=== PATIENT | female | born 1995 | race Caucasian/White ===

== ENCOUNTER 2023-06-20 16:09 | Emergency (ER) | payer OTHER, SELFPAY ==
--- NOTE | ~2023-06-20 | XR_ITS ---
EXAMINATION: XR wrist RT min 3V DATE: 06/20/2023 16:36 INDICATION: Right wrist injury and pain and swelling. TECHNIQUE: 4 views of right wrist were obtained. COMPARISON: None. FINDINGS: Bone alignment is normal. No fracture. Joint spaces are normal. IMPRESSION: 1. Normal right wrist. Reviewed, dictated and finalized at location E. IMPRESSION: 1. Normal right wrist.
[2023-06-20 16:22] VITALS: BP 135/92; PULSE 87; RESP 20; TEMP 36.6; O2SAT 100
--- NOTE | 2023-06-20 16:23 | ED.UPPEXIN ---
HPI - Extremity Injury (Upper) General Chief Complaint: Extremity Injury, Upper Stated Complaint: Fall Injury/Right Wrist Injury Source: patient and RN notes reviewed History of Present Illness HPI narrative: 28 yo F presents to urgent care with complaints of right wrist pain. Pt states she fell at her brother's wedding on Tuesday night, describing a FOOSH injury. Pt has been having pain and limited ROM since. States she did hit her head but denies any LOC or neck pain. Denies any numbness or tingling. Pt presents with wrist splint in place. Related Data Home Medications Medication Instructions Recorded Confirmed [id number] 1 tablet PO Q4-6H PRN Headache 06/20/23 06/20/23 50 mg-325 mg-40 mg tablet naproxen 500 mg tablet mg 06/20/23 rizatriptan 10 mg disintegrating mg 06/20/23 tablet sumatriptan succinate 100 mg tablet 100 mg PO USEASDIRECTD 06/20/23 06/20/23 Allergies Allergy/AdvReac Type Severity Reaction Status Date / Time No Known Allergies Allergy Verified 06/20/23 16:25 Review of Systems Review of Systems: CONSTITUTIONAL: Denies fever, chills, or sweats. EYES: Denies visual changes, redness, or discharge. ENT: Denies otalgia and sore throat CARDIOVASCULAR: Denies chest pain, palpitations, or edema. RESPIRATORY: Denies cough or dyspnea. GASTROINTESTINAL: Denies abdominal pain, nausea, vomiting, or diarrhea. GENITOURINARY: Denies dysuria or hematuria. SKIN: Denies rash or itching. MUSCULOSKELETAL: Right wrist pain NEUROLOGIC: Denies headache, numbness, or weakness. Pertinent positives per HPI. PMFSH Comments At the time of my signature, I reviewed and agree with the nursing past medical, surgical, social, and family history. There is no relevant family history pertinent to the patient complaint. Exam Narrative: GENERAL: This is a well-nourished, well-developed patient, in no apparent distress. HEAD: normocephalic, atraumatic. EYES: Sclera clear/white. Vision is grossly intact. EARS: External ears normal, auditory canals clear and without drainage. Hearing grossly intact. NOSE: External nose normal with no obvious nasal discharge, nares without redness, no rhinorrhea. THROAT: Mucous membranes moist, posterior pharynx clear. NECK: Neck supple, non-tender without lymphadenopathy, masses or thyromegaly. CARDIOVASCULAR: Regular rate RESPIRATORY: No respiratory distress SKIN: warm, intact with no suspicious lesions or rash, good texture and turgor. NEURO: awake, alert, and oriented to person, place and time. There were no obvious focal neurologic abnormalities. EXTREMITIES: tenderness to dorsal side, ulnar side of rigth wrist. Limited ROM with right wrist and gripping with hand due to pain BACK: Nontender without deformity or crepitus. No flank tenderness. Course Course Level of Care: Express Care Visit Vital Signs Vital signs: Vital Signs Temperature 97.9 F 06/20/23 16:22 Pulse Rate 87 06/20/23 16:22 Respiratory Rate 20 06/20/23 16:22 Blood Pressure 135/92 H 06/20/23 16:22 Pulse Oximetry 100 06/20/23 16:22 Oxygen Delivery Room Air 06/20/23 16:22 Temperature 97.9 F 06/20/23 16:28 Pulse Rate 87 06/20/23 16:28 Respiratory Rate 20 06/20/23 16:28 Blood Pressure 135/92 H 06/20/23 16:28 Pulse Oximetry 100 06/20/23 16:28 Oxygen Delivery Room Air 06/20/23 16:28 Reviewed MDM - Extremity Injury (Upper) MDM Narrative Medical decision making narrative: Use the RICE method at home. May take ibuprofen and/or Tylenol if needed. If symptoms persist in 1 week after conservative treatment, follow-up with specialist. Differential Diagnosis Differential diagnosis: Likely sprain and strain of wrist, fracture of wrist and other (Dislocation) Imaging Data Radiologist's impression: [facility] [id number] [place] [address] XRay Report Signed Patient: Yasmeen Salas RAYMUNDO
[2023-06-20 16:28] VITALS: BP 135/92; PULSE 87; RESP 20; TEMP 36.6; O2SAT 100
== END 2023-06-20 16:52 | disposition home or self-care (01) ==
PROVIDERS: Emergency Provider Nurse Practitioner Family; PCP Family Medicine
DX: S63.501A Unspecified sprain of right wrist, initial encounter (principal); S66.911A Strain of unspecified muscle, fascia and tendon at wrist and hand level, right hand, initial encounter; W19.XXXA Unspecified fall, initial encounter
CPT/HCPCS: 73110; 99213; G0463